=== PATIENT | male | born 1955 | race Asian ===

== ENCOUNTER 2018-09-13 10:39 | Emergency (ER) | payer BC ==
[~2018-09-13] VITALS: Ht 170.2 cm; Wt 86.4 kg
[2018-09-13] MEDS ORDERED: LOSA25TA41 PO (10:50)
[2018-09-13] MEDS ORDERED: ATOR20TA86 PO (10:50)
[2018-09-13] MEDS ORDERED: CYCLOBENZAPRINE HCL 10 MG TABLET PO ONE (11:30)
[2018-09-13] MEDS ORDERED: KETOROLAC TROMETHAMINE 30 MG/ML VIAL IM ONE (11:30)
[2018-09-13] MEDS ORDERED: LIDOCAINE 5% TRANSDERMAL PATCH TD ONE (11:30)
[2018-09-13 11:49] VITALS: BP 145/99
== END 2018-09-13 12:10 | disposition home or self-care (01) ==
LOC: EMS 10:40
DX: M54.5 Low back pain (principal); M25.512 Pain in left shoulder; M54.2 Cervicalgia; I10 Essential (primary) hypertension; E78.00 Pure hypercholesterolemia, unspecified
CPT/HCPCS: 96372; 99283; J1885

== ENCOUNTER 2020-10-28 07:37 | Emergency (ER) | payer SELFPAY ==
[~2020-10-28] VITALS: Ht 167.6 cm; Wt 81.8 kg
[~2020-10-28 07:37] MED LIST: ATOR20TA86 PO; LOSA25TA21 PO
[2020-10-28 07:38] VITALS: BP 140/104
[2020-10-28] MEDS ORDERED: AMLO-257 PO (07:41)
== END 2020-10-28 08:24 | disposition left against medical advice (07) ==
LOC: EMS 07:50
DX: Z11.59 Encounter for screening for other viral diseases (principal); Z53.21 Procedure and treatment not carried out due to patient leaving prior to being seen by health care provider